=== PATIENT | female | born 1970 | race Caucasian/White ===

== ENCOUNTER 2019-11-23 09:47 | Emergency (ER) | payer OTHER ==
[~2019-11-23] VITALS: Ht 157.5 cm; Wt 75.1 kg
[2019-11-23 09:49] VITALS: BP_SYST 143; BP_SYST 82; BP_DIAS 82
--- NOTE | 2019-11-23 10:00 | NUR ---
PATIENT AMBULATED TO BED 11. HANDED ON URINE CUP.
--- NOTE | 2019-11-23 10:02 | NUR ---
RECEIVED A 49/F FROM TRIAGE FOR C/O LEFT LOWER BACK PAIN. PT DENIES INJURY/TRAUMA. DENIES DYSURIA/UTI COMPLAINTS. IN BED FOR MSE.
--- NOTE | 2019-11-23 10:30 | NUR ---
MEDICATED ORDERED FOR PAIN AND NAUSEA.
[2019-11-23] MEDS: MORPHINE SULFATE 4 MG/ML SYR IVP ONE (10:35)
[2019-11-23] MEDS: NACL 0.9% 1,000 ML IV SCH (10:35)
[2019-11-23] MEDS: ONDANSETRON 4 MG/2 ML VIAL IVP ONE (10:35)
--- NOTE | 2019-11-23 10:38 | NUR ---
TO CT VIA GURNEY, ACCOMPAINED BY MATERIALS AND PROCESSES MANAGER.
[2019-11-23 10:46] LABS: BASOPHILS % (AUTO) 0.4 % (0.0-2.0); EOSINOPHILS # (AUTO) 0.1 K/uL (0-0.4); EOSINOPHILS % (AUTO) 0.9 % (0.0-4.0); HEMATOCRIT 40.3 % (36-48); HEMOGLOBIN 13.9 g/dL (12.0-16.0); LYMPHOCYTES # (AUTO) 1.7 K/uL (2.5-16.5); LYMPHOCYTES % (AUTO) 19.1 % (20.5-51.1); MEAN CORPUSCULAR HEMOGLOBIN 30 pg (27-31); MEAN CORPUSCULAR HGB CONC 35 g/dL (33-37); MEAN CORPUSCULAR VOLUME 87.8 fL (80-94); MONOCYTES # (AUTO) 0.5 K/uL (0.8-1.0); MONOCYTES % (AUTO) 5.9 % (1.7-9.3); NEUTROPHILS # (AUTO) 6.7 K/uL (1.8-7.7); NEUTROPHILS % (AUTO) 73.7 % (42.2-75.2); PLATELET COUNT (AUTO) 293 K/uL (140-450); RED BLOOD CELL COUNT(AUTO) 4.59 MIL/uL (4.20-5.40); RED CELL DISTRIBUTION WIDTH 13.5 % (11.6-13.7); WHITE BLOOD COUNT (AUTO) 9.1 K/uL (4.8-10.8)
[2019-11-23 10:46] LABS: BILIRUBIN,URINE NEGATIVE (NEGATIVE); BLOOD, URINE 1+ (NEGATIVE); COLOR,URINE YELLOW (YELLOW); LEUKOCYTE ESTERASE ,URINE NEGATIVE (NEGATIVE); NITRITE, URINE NEGATIVE (NEGATIVE); UGLUCOSE NEGATIVE (NEGATIVE)
--- NOTE | 2019-11-23 10:48 | NUR ---
RETURN FROM CT.
--- NOTE | 2019-11-23 10:48 | NUR ---
PT REPORTED PAIN AT 0/10 AFTER MORPHINE ADMIN.
[2019-11-23 10:54] LABS: APPEARANCE,URINE SLIGHTLY HAZY (CLEAR); WBC,URINE 0-5 /HPF (0-5)
[2019-11-23 11:01] LABS: ALBUMIN 3.7 g/dL (3.4-5.0); ANION GAP 14.5 (8-16); CARBON DIOXIDE 23.1 mmol/L (21-32); CREATININE 0.7 mg/dL (0.6-1.3); POTASSIUM 3.6 mmol/L (3.5-5.1); TOTAL BILIRUBIN 0.2 mg/dL (0.0-1.0)
--- NOTE | 2019-11-23 11:41 | NUR ---
PT REMAINS PAIN FREE, WILL CONTINUE TO ASSESS.
--- NOTE | 2019-11-23 12:42 | NUR ---
PT AMBULATED TO RESTROOM
--- NOTE | 2019-11-23 12:42 | NUR ---
US AT BEDSIDE
--- NOTE | 2019-11-23 13:03 | NUR ---
REPORT TO MELANY, ALL CARE TRANSFERRED.
--- NOTE | 2019-11-23 13:19 | NUR ---
PT RESTING IN BED WITH DAUGHTER AT BEDSIDE. DENIES ANY PAIN. RESP EVEN AND UNLABORED. VSS. BED IN LOWEST POSITION.
[2019-11-23 14:58] VITALS: BP 109/62
== END 2019-11-23 14:58 | disposition home or self-care (01) ==
LOC: MED 09:47
DX: N83.202 Unspecified ovarian cyst, left side (principal); R11.0 Nausea; R42 Dizziness and giddiness; Z98.890 Other specified postprocedural states
CPT/HCPCS: 36415; 74176; 76830; 80053; 81001; 81025; 82150; 83690; 85025; 96361; 96374; 96375; 99285; J2270; J2405; J7030; Q0092

== ENCOUNTER 2021-11-29 06:55 | Emergency (ER) | payer OTHER ==
[~2021-11-29] VITALS: Ht 152.4 cm; Wt 79.6 kg
[2021-11-29 07:06] VITALS: BP 148/91
--- NOTE | 2021-11-29 07:12 | NUR ---
pt taken to bed 07.
--- NOTE | 2021-11-29 07:20 | NUR ---
51 y/o F ambulated to bed 7, c/o palpitations x6am. reports 10 pressure-like chest pain rad to back that began at rest. +sob. denies hx, rx and allergies
--- NOTE | 2021-11-29 07:26 | NUR ---
xr at bedside for portable cxr
[2021-11-29] MEDS ORDERED: NITROGLYCERIN 50 MG/D5W PREMIX 250 ML IV ONE (07:30)
--- NOTE | 2021-11-29 08:00 | NUR ---
lab at bedside for blood draw
[2021-11-29] MEDS: ASPIRIN 81 MG TAB.CHEW PO ONE (08:10)
--- NOTE | 2021-11-29 08:13 | NUR ---
pt ambulated to restroom, steady gait
[2021-11-29 09:16] LABS: BASOPHILS % (AUTO) 0.4 % (0.0-2.0); EOSINOPHILS # (AUTO) 0.1 K/uL (0-0.4); EOSINOPHILS % (AUTO) 1.1 % (0.0-4.0); HEMATOCRIT 38.1 % (36-48); HEMOGLOBIN 12.8 g/dL (12.0-16.0); LYMPHOCYTES # (AUTO) 1.6 K/uL (2.5-16.5); LYMPHOCYTES % (AUTO) 15.3 % (20.5-51.1); MEAN CORPUSCULAR HEMOGLOBIN 30 pg (27-31); MEAN CORPUSCULAR HGB CONC 34 g/dL (33-37); MEAN CORPUSCULAR VOLUME 89.5 fL (80-94); MONOCYTES # (AUTO) 0.8 K/uL (0.8-1.0); MONOCYTES % (AUTO) 7.8 % (1.7-9.3); NEUTROPHILS # (AUTO) 7.7 K/uL (1.8-7.7); NEUTROPHILS % (AUTO) 75.4 % (42.2-75.2); PLATELET COUNT (AUTO) 294 K/uL (140-450); RED BLOOD CELL COUNT(AUTO) 4.25 MIL/uL (4.20-5.40); RED CELL DISTRIBUTION WIDTH 13.7 % (11.6-13.7); WHITE BLOOD COUNT (AUTO) 10.2 K/uL (4.8-10.8)
[2021-11-29 09:20] LABS: ALBUMIN 3.3 g/dL (3.4-5.0); ANION GAP 11.8 (8-16); CREATININE 0.5 mg/dL (0.6-1.3); POTASSIUM 3.8 mmol/L (3.5-5.1); TOTAL BILIRUBIN 0.2 mg/dL (0.0-1.0)
--- NOTE | 2021-11-29 11:23 | NUR ---
LAB AT BEDSIDE TO DRAW BLOOD
[2021-11-29 12:00] VITALS: BP 115/60
--- NOTE | 2021-11-29 12:36 | NUR ---
Patient discharged with v/s stable. Written and verbal after care instructions ABOUT NONSPECIFIC CHEST PAIN AND PALPITATIONS given and explained. Patient verbalized understanding. Ambulatory with steady gait. All questions addressed prior to discharge. Advised to follow up with PMD.
== END 2021-11-29 12:36 | disposition home or self-care (01) ==
LOC: MED 06:55
DX: R00.2 Palpitations (principal); R07.9 Chest pain, unspecified; R73.09 Other abnormal glucose
CPT/HCPCS: 36415; 71045; 80053; 82948; 83880; 84443; 84484; 85025; 93005; 99285; Q0092; J3490